=== PATIENT | female | born 1980 | race Caucasian/White ===

== ENCOUNTER → 2022-11-19 09:46 | Outpatient (CLI) | payer BC, SELFPAY ==
--- NOTE | ~2022-11-19 | US_ITS ---
EXAMINATION: US transvaginal DATE: 11/19/2022 10:07 INDICATION: Menorrhagia Comparison:No prior studies for comparison. TECHNIQUE: Multiple transabdominal and endovaginal sonographic images of the pelvis performed. FINDINGS: The uterus measures 10 x 5.4 x 6.1 cm. There are hypoechoic masses of the uterus, largest m easuring 3.9 cm, consistent with fibroids. The endometrial complex measures 7 mm. The right ovary measures 2.7 x 1.8 x 2.5 cm and the left ovary measures 2.7 x 2.2 x 2.6 cm. There ar e small follicles in each ovary. Normal doppler signal in both ovaries. There is no free fluid in the pelvis. There are no abnormal masses seen on either side. IMPRESSION: 1. Enlarged fibroid uterus, largest discrete fibroid measuring 3.9 cm. Reviewed, dictated and finalized at location [facility]
== END ==
PROVIDERS: PCP Nurse Practitioner; Visit Provider Nurse Practitioner
DX: N92.0 Excessive and frequent menstruation with regular cycle (principal); D25.9 Leiomyoma of uterus, unspecified
CPT/HCPCS: 76830

== ENCOUNTER 2022-12-28 00:15 | Day surgery (SDC) | payer BC, SELFPAY ==
[2022-12-01 15:42] VITALS: BMI 26.5
--- NOTE | 2022-12-01 15:47 | SUR.PREOP ---
Addendum entered by Arlene Lilly RN 12/17/22 13:57: PT TO ARRIVE AT 1300 ON 12/28/22 FOR SURGERY AT 1500. Original Note: Report to the Outpatient Waiting Room, entrance under the green pavilion located off [facility], at time 1215 on date 12/14/22. Planned Procedure Time: 1415. Time changes happen often and if your time is changed the preop area will call you the afternoon before. - You and your visitor will be asked to self-screen and do not enter if you have any COVID symptoms. - Only one visitor is requested with a max of two and NO children visitors are allowed at this time. - The patient visitor may be requested to leave or wait in car when not with patient due to distancing restrictions. - A mask is optional within the hospital at this time. Patients may have clear liquids (water, carbonated beverages, clear teas, apple juice) until 3 hours prior to surgery with a maximum of 20 ounces. - No food from midnight until time of surgery 20 OUNCES BEFORE 1115 - Infants may have breast milk until 4 hours before surgery, formula 6 hours prior to surgery. - Children will be allowed to drink immediately following surgery. If applicable, please bring a bottle or sippy cup to assist with drinking. Juice, water, soda, and popsicles are readily available. For infants on formula, please bring formula the day of surgery. Pacifiers are allowed. Take the following medications with a SIP of water the morning of surgery: ____N/A DO NOT STOP ANY OF YOUR OTHER PRESCRIPTION MEDICATIONS PRIOR TO SURGERY ?EXCEPT THE FOLLOWING Medications to discontinue per physician N/A Date to take last dose Please no make-up, nail bhutanese, hairspray, perfume, deodorant, or body powder the day of surgery. No jewelry (including any body piercings) or valuables the day of surgery, leave them at home. Please take a shower or bath the night before, or the morning of, surgery with an antibacterial soap. Wear comfortable, loose fitting clothing. Children are encouraged to wear pajamas. - Jewelry must be removed prior to entering the operating room. Rings and piercings that are not removed may be cut off. - The hospital will not accept responsibility for valuables. - Please leave all valuables, including medications, at home the day of surgery. If you are going home after surgery, a licensed route delivery service driver must drive you home. - NO public transportation without another adult if you receive anesthesia. - We recommend that an adult stay with you for 24 hours following discharge. - We also recommend that you do not drive, make important decision, drink alcoholic beverages, or take any drugs that were not prescribed by your health care provider for at least 24 hours after your discharge time. For Pediatric surgeries, we recommend two adults accompany the child home. Follow any additional instructions given to you from your surgeon. If you or anyone in your household have experienced Covid symptoms in the past week, please notify your surgeon or the nurse liaison at the phone number below for possible testing. Telephone instructions given to ___PATIENT____and asked if any additional questions and then verbalized understanding. Patient advised to call surgeon office or pre surgery nurse liaison [phone] if any additional questions.
--- NOTE | 2022-12-14 08:06 | WPDHPUPDATE1 ---
History and Physical Update Update Date/Time: 12/14/22 08:06 History and Physical has been reviewed, including an updated exam of the patient. There are NO changes in the patient's condition. Risks, benefits, and alternatives have been discussed and questions answered. Patient agrees to proceed with procedure.
--- NOTE | 2022-12-14 08:06 | PM.HPGS ---
History of Present Illness History of Present Illness Consent: Risks, benefits, and alternatives have been discussed and questions answered. Patient agrees to proceed with procedure. Chief complaint: Menorrhagia Narrative: Charlene Hubbard is a 42 year old female with worsening menstrual cycles and known fibroids. It was recommended to proceed with D&C hysteroscopy for further evaluation. Risks of infection, bleeding, perforation, and fluid imbalance were reviewed. Possible pathology was also discussed. Patient voiced understanding and agrees to proceed. Review of Systems Review of Systems: not repeated day of surgery; patient states no changes in status PMFSH Past Medical History Medical History (Updated 12/14/22 @ 08:09 by Maricruz Ro MD) Depression with anxiety (normal spontaneous vaginal delivery) x3 Surgical History Surgical History (Updated 12/14/22 @ 08:08 by Maricruz Ro MD) History of loop electrical excision procedure (LEEP) x2 possibly x3 patient is unsure in addition the patient had 2 prior cryotherapies Status post breast augmentation Social History Social History Years smoked: 1 Smoking status: Current every day smoker Tobacco type: e-cigarettes/vaping Alcohol intake: current Drinks per week: 5 Living arrangements: with family Meds Home Medications and Allergies Home Medications Medication Instructions Recorded Confirmed Type No Home Medications 12/01/22 12/01/22 History Allergies Allergy/AdvReac Type Severity Reaction Status Date / Time Sulfa (Sulfonamide Allergy Intermediate Hives Verified 12/01/22 15:55 Antibiotics) PENICILLIN Allergy Intermediate Hives / Uncoded 12/14/17 18:51 Red Face Exam Const: General: healthy appearing and alert Orientation/consciousness: patient oriented x3 Resp: Effort & Inspection: normal respiratory effort GI: GI Palp: Yes Soft to palpation, No Tenderness to palpation present (GI) and No Palpable mass present : External Female Exam: normal external appearance Speculum Exam - Vagina: normal appearance of the vagina and normal vaginal discharge Speculum Exam - Cervix: normal appearance of the cervix Bimanual exam- vagina & uterus: consistency normal and enlarged Bimanual Exam- Adnexa, other: normal adnexae and No adnexal tenderness Neuro: General: patient oriented x3 Assessment and Plan Assessment and plan (1) Menorrhagia: Code(s): N92.0 - Excessive and frequent menstruation with regular cycle Status: Acute Assessment and Plan: plan to proceed with D&C hysteroscopy
--- NOTE | 2022-12-14 14:39 | SUR.PREOP ---
1415- PT HAD ISSUES WITH PRIOR AUTHORIZATION FROM INSURANCE. PT SPOKE WITH CLEM ABOUT PROCEDURE BEING CANCELLED FOR TODAY. PT INFORMED TO CALLED DR. BARBA OFFICE TO RESCHEDULE.
--- NOTE | 2022-12-17 13:57 | PC.NURSE ---
Pt states no changes in medications or health history since initial interview. New pre-op instructions reviewed with pt. Pt denies further questions at this time.
--- NOTE | 2022-12-28 08:16 | WPDHPUPDATE1 ---
History and Physical Update Update Date/Time: 12/28/22 08:16 History and Physical has been reviewed, including an updated exam of the patient. There are NO changes in the patient's condition. Risks, benefits, and alternatives have been discussed and questions answered. Patient agrees to proceed with procedure.
--- NOTE | 2022-12-28 08:16 | PM.HPGS ---
History of Present Illness History of Present Illness Consent: Risks, benefits, and alternatives have been discussed and questions answered. Patient agrees to proceed with procedure. Chief complaint: Menorrhagia Narrative: Charlene Hubbard is a 42 year old female with menorrhagia and known fibroids. It was recommended to proceed with D&C hysteroscopy with possible myomectomy. Risks of infection, bleeding, perforation, and fluid imbalance are reviewed. Also due to patient's prior history of LEEP and cryotherapy she was given Cytotec 1 week prior to the procedure. Risks of inability to enter the cavity are also discussed. Patient voices understanding and agrees to proceed. Review of Systems Review of Systems: not repeated day of surgery; patient states no changes in status PMFSH Past Medical History Medical History (Updated 12/14/22 @ 08:09 by Maricruz Ro MD) Depression with anxiety (normal spontaneous vaginal delivery) x3 Surgical History Surgical History (Updated 12/14/22 @ 08:08 by Maricruz Ro MD) History of loop electrical excision procedure (LEEP) x2 possibly x3 patient is unsure in addition the patient had 2 prior cryotherapies Status post breast augmentation Social History Social History Years smoked: 1 Smoking status: Current every day smoker Tobacco type: e-cigarettes/vaping Alcohol intake: current Drinks per week: 5 Living arrangements: with family Meds Home Medications and Allergies Home Medications Medication Instructions Recorded Confirmed Type No Home Medications 12/01/22 12/17/22 History Allergies Allergy/AdvReac Type Severity Reaction Status Date / Time Penicillins Allergy Intermediate HIVES/RED Verified 12/17/22 13:56 FACE Sulfa (Sulfonamide Allergy Intermediate Hives Verified 12/17/22 13:56 Antibiotics) Exam Const: General: healthy appearing and alert Orientation/consciousness: patient oriented x3 Resp: Effort & Inspection: normal respiratory effort GI: GI Palp: Yes Soft to palpation, No Tenderness to palpation present (GI) and No Palpable mass present : External Female Exam: normal external appearance Speculum Exam - Vagina: normal appearance of the vagina and normal vaginal discharge Speculum Exam - Cervix: normal appearance of the cervix Bimanual exam- vagina & uterus: uterine size normal and consistency normal Bimanual Exam- Adnexa, other: normal adnexae and No adnexal tenderness Neuro: General: patient oriented x3 Assessment and Plan Assessment and plan (1) Menorrhagia: Code(s): N92.0 - Excessive and frequent menstruation with regular cycle Status: Acute Assessment and Plan: plan to proceed with D&C hysteroscopy
[2022-12-28 09:23] VITALS: BP 115/72; PULSE 81; RESP 20; TEMP 36.3; O2SAT 100
[2022-12-28] MEDS: ACETAMINOPHEN 500 MG TABLET 1000 MG PO (09:24)
--- NOTE | 2022-12-28 09:48 | P.PNAN_ITS ---
Anes - Initial Pre Proc Eval Procedure: Operation Date: 12/28/22 11:30 Proposed Procedures p Hysteroscopy Dilation and Curettage - Maricruz Ro MD Date/Time: 12/28/22 09:48 Surgeon: Maricruz Ro MD Pre Op Diagnosis: Menorrhagia Patient Data Age: 42 Gender: F Height: 1.6 m Weight: 68.04 kg Allergies Allergy/AdvReac Type Severity Reaction Status Date / Time Penicillins Allergy Intermediate HIVES/RED Verified 12/28/22 09:24 FACE Sulfa (Sulfonamide Allergy Intermediate Hives Verified 12/28/22 09:24 Antibiotics) Home Medications Medication Instructions Recorded Confirmed Type No Home Medications 12/01/22 12/28/22 History Patient hx anesthesia problems: none Family hx anesthesia problems: none Results Review: All pre-operative results and documents have been reviewed as part of the pre- operative evaluation. PMFSH Past Medical History Medical History (Updated 12/14/22 @ 08:09 by Maricruz Ro MD) Depression with anxiety (normal spontaneous vaginal delivery) x3 Surgical History Surgical History (Updated 12/14/22 @ 08:08 by Maricruz Ro MD) History of loop electrical excision procedure (LEEP) x2 possibly x3 patient is unsure in addition the patient had 2 prior cryotherapies Status post breast augmentation Social History Social History Years smoked: 1 Smoking status: Current every day smoker Tobacco type: e-cigarettes/vaping Alcohol intake: current Drinks per week: 5 Living arrangements: with family Anes - Eval Final PreProcedure Day of Procedure 12/28/22 09:48 Patient weight: normal Heart: regular rate and rhythm Lungs: clear to auscultation Airway: Mallampati scale class II Neurological: alert and oriented Last oral intake: >/= 8 hours ASA classification: II Emergent: no Anesthetic plan: proceed Anesthesia type and monitoring: general GIVS and standard monitoring Results Review: All pre-operative results and documents have been reviewed as part of the pre- operative evaluation. Informed Consent: The patient's anesthetic plan and its attendant risks and benefits were discussed with the patient/family/POA. Questions were solicited and answers provided to the satisfaction of the patient/family/POA.
[2022-12-28] MEDS: LACTATED RINGERS 1,000 ML 30 ML IV CONT (09:55)
[2022-12-28] MEDS: LIDOCAINE HCL 1% LOCAL INJ 20 ML VIAL 10 ML INFILTRATE (11:11)
[2022-12-28 11:24] VITALS: BP 103/56; PULSE 80; RESP 16; O2SAT 98
--- NOTE | 2022-12-28 11:24 | W.PM.PROC2 ---
Procedure Note - Detailed Date of Procedure 12/28/22 Pre-op Diagnosis Menorrhagia Post-op Diagnosis Same Procedure Performed D&C hysteroscopy Surgeon Maricruz Ro MD Anesthesia MAC and Local Findings uterus sounds to 9cm; the posterior endometrial wall is very thick extending into the endocervix Description of Procedure The patient is taken to the operating room and placed under anesthesia in the dorsal lithotomy position. She was prepped and draped in usual sterile fashion. [place] speculum was placed in the vagina and the cervix grasped on the anterior lip with a tenaculum. Cervix is injected in each quadrant with lidocaine. Uterus is sounded to 9cm. The hysteroscope is placed with the above-stated findings. The small Aveeta resection blade was used to resect the very thickened wall including that in the endocervix. The hysteroscope was then removed and the sharp curette used to curette the endometrium until a good uterine cry is noted in all areas. All instruments are removed. The sponge, needle, and instrument counts are correct per the OR staff. The patient is awakened from anesthesia and taken to recovery in stable condition. Estimated Blood Loss 5 Drains No Packing No Pathology Yes ( Endometrial shavings and curettings) Complications No immediate complications Condition Stable Disposition PACU
[2022-12-28 11:50] VITALS: BP 115/75; PULSE 67; RESP 20
[2022-12-28] MEDS: oxyCODONE HCL (*CRX) 5 MG TAB IR PO (11:52)
[2022-12-28 12:20] VITALS: BP 112/80; PULSE 63; RESP 20
== END 2022-12-28 12:33 | disposition home or self-care (01) ==
PROVIDERS: PCP Nurse Practitioner; Visit Provider Obstetrics & Gynecology Gynecology
PROC: 0U5B8ZZ Destruction of Endometrium, Via Natural or Artificial Opening Endoscopic (ICD-10-PCS; CPT 58563; principal; 2022-12-28 11:30)
DX: N92.0 Excessive and frequent menstruation with regular cycle (principal); F17.290 Nicotine dependence, other tobacco product, uncomplicated
CPT/HCPCS: 58558; 88305; A9270; J1885; J2250; J2704; J3010; J7120

== ENCOUNTER 2022-12-29 15:27 | Emergency (ER) | payer BC, SELFPAY ==
[2022-12-29 15:34] VITALS: BP 147/78; PULSE 120; RESP 16; TEMP 39.3; O2SAT 99
--- NOTE | 2022-12-29 15:36 | ED.URI ---
HPI - URI/Sore Throat General Chief Complaint: Upper Respiratory Infection Stated Complaint: body aches/weiner/sore throat Time Seen by Provider: 12/29/22 15:36 Source: patient, RN notes reviewed and old records reviewed Mode of arrival: ambulatory Limitations: no limitations History of Present Illness HPI Narrative: 42-year-old female presents to the [facility] with complaints of body aches, headache and sore throat that started approximately 11:00 a.m. today Had a D&C done yesterday, outpatient. Tried calling [employer] board certified orthotist. elicited complaint: fever and sore throat Related Data Allergies Allergy/AdvReac Type Severity Reaction Status Date / Time Penicillins Allergy Intermediate HIVES/RED Verified 12/29/22 15:37 FACE Sulfa (Sulfonamide Allergy Intermediate Hives Verified 12/29/22 15:37 Antibiotics) Review of Systems Review of Systems: All systems reviewed & are unremarkable except as noted in HPI and below Constitutional: Constitutional: Reports as per HPI and Reports body ache(s) Eyes: Eyes: Reports no additional eye complaints ENT: Reports as per HPI and Reports sore throat Cardiovascular: Cardiovascular: Reports no additional cardiovascular complaints, Denies chest pain and Denies dyspnea Respiratory: Respiratory: Reports no additional respiratory complaints, Denies chest congestion, Denies cough and Denies dyspnea Gastrointestinal: Gastrointestinal: Reports no additional gastrointestinal complaints, Denies abdominal pain, Denies nausea and Denies vomiting Musculoskeletal: Musculoskeletal: Reports no additional musculoskeletal complaints Integumentary/Breasts: Skin/Breast: Reports system reviewed and no additional complaints, except as docu Neurologic: Reports system reviewed and no additional complaints, except as documented Psychiatric: Psychiatric: Reports no additional psychiatric complaints Allergic/Immunologic: Allergic/Immunologic: Reports no additional allergic/immunologic complaints PMFSH Past Medical History Medical History Depression with anxiety (normal spontaneous vaginal delivery) x3 Surgical History Surgical History History of loop electrical excision procedure (LEEP) x2 possibly x3 patient is unsure in addition the patient had 2 prior cryotherapies Status post breast augmentation Social History Social History Years smoked: 1 Smoking status: Current every day smoker Tobacco type: e-cigarettes/vaping Alcohol intake: current Drinks per week: 5 Living arrangements: with family Comments At the time of my signature, I reviewed and agree with the nursing past medical, surgical, social, and family history. There is no relevant family history pertinent to the patient complaint. Exam Const: General: cooperative, healthy appearing, comfortable, no acute distress, well developed, alert and well nourished Nutritional Appearance: well nourished Orientation/consciousness: patient oriented x3 Limitations: no limitations HENMT: Head: normal to inspection Ears: hearing grossly normal bilaterally and external ears normal Face/Nose/Sinus: Normal external nose present, Normal nares present, Normal nasal mucous membranes and turbinates present and normal facial exam Face and sinus: normal facial exam Mouth: Yes Normal oral and palatal mucosa present, Yes lip normal and Yes moist mucous membranes Throat: posterior oropharynx normal, uvula midline and abnormal tonsil bilateral hypertrophy 2+; no erythema and no exudates Eyes: General: appearance normal, both eyes and all related structures Alignment and Position: alignment normal Periorbital: periorbital findings normal Conjunctivae: conjunctivae normal Pupils: Equal, round and reactive pupils present EOM: EOMs intact bilaterally Neck: Neck: normal visual inspection,
[2022-12-29 15:37] VITALS: BP 147/78; PULSE 120; RESP 16; TEMP 39.3; O2SAT 99
[2022-12-29 15:47] VITALS: TEMP 39.3
[2022-12-29] MEDS: ACETAMINOPHEN 500 MG TABLET 1000 MG PO (15:47)
[2022-12-29 16:10] VITALS: PULSE 110; TEMP 39.1
== END 2022-12-29 16:10 | disposition home or self-care (01) ==
PROVIDERS: Emergency Provider Nurse Practitioner; PCP Nurse Practitioner Family
DX: J02.0 Streptococcal pharyngitis (principal); F17.290 Nicotine dependence, other tobacco product, uncomplicated
CPT/HCPCS: 87880; 99213; A9270; G0463

== ENCOUNTER 2023-01-25 00:52 | Day surgery (SDC) | payer BC, SELFPAY ==
[2023-01-18 11:30] VITALS: BMI 26.2
--- NOTE | 2023-01-18 11:33 | PC.NURSE ---
Report to the Outpatient Waiting Room, entrance under the green pavilion located off [facility], at time 1215 on date 01/25/23. Planned Procedure Time: 1415. Time changes happen often and if your time is changed the preop area will call you the afternoon before. - You and your visitor will be asked to self-screen and do not enter if you have any COVID symptoms. - A mask is optional within the hospital at this time. Patients may have clear liquids (water, carbonated beverages, clear teas, apple juice) until 3 hours prior to surgery with a maximum of 20 ounces. - No food from midnight until time of surgery Take the following medications with a SIP of water the morning of surgery: N/A DO NOT STOP ANY OF YOUR OTHER PRESCRIPTION MEDICATIONS PRIOR TO SURGERY EXCEPT THE FOLLOWING Medications to discontinue per physician: N/A Date to take last dose: N/A Please no make-up, nail serbian, hairspray, perfume, deodorant, or body powder the day of surgery. No jewelry (including any body piercings) or valuables the day of surgery, leave them at home. Please take a shower or bath the night before, or the morning of, surgery with an antibacterial soap. Wear comfortable, loose fitting clothing. - Jewelry must be removed prior to entering the operating room. Rings and piercings that are not removed may be cut off. - The hospital will not accept responsibility for valuables. - Please leave all valuables, including medications, at home the day of surgery. If you are going home after surgery, a licensed semi truck driver must drive you home. - NO public transportation without another adult if you receive anesthesia. - We recommend that an adult stay with you for 24 hours following discharge. - We also recommend that you do not drive, make important decision, drink alcoholic beverages, or take any drugs that were not prescribed by your health care provider for at least 24 hours after your discharge time. Follow any additional instructions given to you from your surgeon. If you or anyone in your household have experienced Covid symptoms in the past week, please notify your surgeon or the nurse liaison at the phone number below for possible testing. Telephone instructions given to PT - DAVE SOMMERS and asked if any additional questions and then verbalized understanding. Patient advised to call surgeon office or pre surgery nurse liaison [phone] if any additional questions.
--- NOTE | 2023-01-25 08:38 | P.HP_ITS ---
History of Present Illness History of Present Illness Consent: Risks, benefits, and alternatives have been discussed and questions answered. Patient agrees to proceed with procedure. Chief complaint: Menorrhagia Narrative: Charlene Hubbard is a 42 year old female with menorrhagia. Patient underwent D&C hysteroscopy December of 2022 with benign findings. Patient has elected to proceed with Elaine endometrial ablation for treatment. Risks of infection, bleeding, perforation, and failure were reviewed. Patient voices understanding and agrees to proceed. PMFSH Past Medical History Medical History (Updated 12/30/22 @ 00:01 by Ramona Romero) Depression with anxiety (normal spontaneous vaginal delivery) x3 Surgical History Surgical History (Updated 01/25/23 @ 08:40 by Maricruz Ro MD) History of hysteroscopy 01/17 benign History of loop electrical excision procedure (LEEP) x2 possibly x3 patient is unsure in addition the patient had 2 prior cryotherapies Status post breast augmentation Social History Social History Years smoked: 1 Smoking status: Current every day smoker Tobacco type: e-cigarettes/vaping Alcohol intake: current Drinks per week: 5 Substance use: never Substance use type: does not use Living arrangements: with family Spiritual care concerns: No Meds Home Medications and Allergies Home Medications Medication Instructions Recorded Confirmed Type No Home Medications 01/18/23 01/18/23 History Allergies Allergy/AdvReac Type Severity Reaction Status Date / Time Penicillins Allergy Intermediate HIVES/RED Verified 01/18/23 11:30 FACE Sulfa (Sulfonamide Allergy Intermediate Hives Verified 01/18/23 11:30 Antibiotics) Exam Const: General: healthy appearing and alert Orientation/consciousness: patient oriented x3 Resp: Effort & Inspection: normal respiratory effort GI: GI Palp: Yes Soft to palpation, No Tenderness to palpation present (GI) and No Palpable mass present : External Female Exam: normal external appearance Speculum Exam - Vagina: normal appearance of the vagina and normal vaginal discharge Speculum Exam - Cervix: normal appearance of the cervix Bimanual exam- vagina & uterus: uterine size normal and consistency normal Bimanual Exam- Adnexa, other: normal adnexae and No adnexal tenderness Neuro: General: patient oriented x3 Assessment and Plan Assessment and plan (1) Menorrhagia: Code(s): N92.0 - Excessive and frequent menstruation with regular cycle Status: Acute Assessment and Plan: plan to proceed Elaine endometrial ablation
--- NOTE | 2023-01-25 08:38 | WPDHPUPDATE1 ---
History and Physical Update Update Date/Time: 01/25/23 08:38 History and Physical has been reviewed, including an updated exam of the patient. There are NO changes in the patient's condition. Risks, benefits, and alternatives have been discussed and questions answered. Patient agrees to proceed with procedure.
[2023-01-25 12:12] VITALS: BP 123/87; PULSE 77; RESP 16; TEMP 36.6; O2SAT 100
--- NOTE | 2023-01-25 13:23 | P.PNAN_ITS ---
Anes - Eval Pre Procedure Procedure: Operation Date: 01/25/23 14:15 Proposed Procedures p Hysteroscopy with Elaine Endometrial Ablation - Maricruz Ro MD Date/Time: 01/25/23 13:23 Pre Op Diagnosis: Menorrhagia Patient Data Age: 42 Gender: F Height: 1.6 m Weight: 69.3 kg Last Vital Signs Temp 36.6 C 01/25/23 12:12 Pulse 77 01/25/23 12:12 Resp 16 01/25/23 12:12 BP 123/87 01/25/23 12:12 Pulse Ox 100 01/25/23 12:12 O2 Del Method Room Air 01/25/23 12:12 Allergies Allergy/AdvReac Type Severity Reaction Status Date / Time Penicillins Allergy Intermediate HIVES/RED Verified 01/25/23 12:22 FACE Sulfa (Sulfonamide Allergy Intermediate Hives Verified 01/25/23 12:22 Antibiotics) Home Medications Medication Instructions Recorded Confirmed Type No Home Medications 01/18/23 01/25/23 History Patient hx anesthesia problems: none Family hx anesthesia problems: none Results Review: All pre-operative results and documents have been reviewed as part of the pre- operative evaluation. PMFSH Past Medical History Medical History (Updated 12/30/22 @ 00:01 by Ramona Romero) Depression with anxiety (normal spontaneous vaginal delivery) x3 Surgical History Surgical History (Updated 01/25/23 @ 08:40 by Maricruz Ro MD) History of hysteroscopy 01/17 benign History of loop electrical excision procedure (LEEP) x2 possibly x3 patient is unsure in addition the patient had 2 prior cryotherapies Status post breast augmentation Social History Social History Years smoked: 1 Smoking status: Current every day smoker Tobacco type: e-cigarettes/vaping Alcohol intake: current Drinks per week: 5 Substance use: never Substance use type: does not use Living arrangements: with family Spiritual care concerns: No Exam Day of Procedure 01/25/23 13:23
[2023-01-25] MEDS: KETOROLAC 30 MG/ML VIAL (*BKC) IV PUSH (13:26)
[2023-01-25] MEDS: LIDOCAINE HCL 1% LOCAL INJ 20 ML VIAL 10 ML INFILTRATE (13:33)
[2023-01-25 13:53] VITALS: BP 94/58; PULSE 79; RESP 20
[2023-01-25] MEDS: LACTATED RINGERS 1,000 ML 30 ML IV CONT (13:53)
--- NOTE | 2023-01-25 13:55 | W.PM.PROC2 ---
Procedure Note - Detailed Date of Procedure 01/25/23 Pre-op Diagnosis Menorrhagia Post-op Diagnosis Same Procedure Performed Elaine endometrial ablation Surgeon Maricruz Ro MD Anesthesia MAC and Local Findings uterus sounds to 7cm and appears to be shedding Description of Procedure The patient is taken to the operating room and placed under anesthesia in the dorsal lithotomy position. She was prepped and draped in the usual sterile fashion. Avella speculum was placed in the vagina and the cervix grasped on the anterior lip with a tenaculum. Cervix is injected in each quadrant with 1% lidocaine. The uterus sounds to 7cm. The hysteroscope was placed with the above-stated finding. The hysteroscope is removed.The cervix is is serially dilated to an 8 Hegar . The Elaine device is opened and placed set at 4 length. Cavity assessment passed on the 1st attempt and treatment cycle lasted the full 2minutes. The Elaine device was removed and the hysteroscope is replaced with a good ablation effect noted. The hysteroscope was removed as are the rest of the instruments. Sponge, needle, and instrument counts are correct per the OR staff. The patient is awakened from anesthesia and taken to recovery in stable condition. Estimated Blood Loss 5 Drains No Packing No Pathology None sent Complications No immediate complications Condition Stable Disposition PACU
[2023-01-25] MEDS: oxyCODONE HCL (*CRX) 5 MG TAB IR PO (14:17)
[2023-01-25 14:20] VITALS: BP 118/77; PULSE 90; RESP 20
[2023-01-25 14:50] VITALS: BP 120/82; PULSE 63; RESP 20
[2023-01-25] MEDS: fentaNYL CITRATE INJ (*CRX) 100 MCG/2 ML VIAL 25 MCG IV PUSH (14:56)
[2023-01-25 15:00] VITALS: BP 119/78; PULSE 71; RESP 20
== END 2023-01-25 15:05 | disposition home or self-care (01) ==
PROVIDERS: PCP Nurse Practitioner Family; Visit Provider Obstetrics & Gynecology Gynecology
PROC: 0U5B8ZZ Destruction of Endometrium, Via Natural or Artificial Opening Endoscopic (ICD-10-PCS; CPT 58563; principal; 2023-01-25 14:15)
DX: N92.0 Excessive and frequent menstruation with regular cycle (principal); F17.290 Nicotine dependence, other tobacco product, uncomplicated
CPT/HCPCS: 58563; A9270; J1100; J1885; J2250; J2405; J2704; J3010; J7120

== ENCOUNTER 2023-02-17 19:11 | Emergency (ER) | payer BC, SELFPAY ==
[2023-02-17 19:20] VITALS: BP 128/75; PULSE 110; RESP 16; TEMP 37.6; O2SAT 99
--- NOTE | 2023-02-17 19:41 | ED.SKABFB ---
HPI - Skin/Abscess/Foreign Bdy General Chief complaint: Extremity Injury, Upper Stated complaint: Right Hand Pain Time Seen by Provider: 02/17/23 19:41 Source: patient and RN notes reviewed Mode of arrival: ambulatory Limitations: no limitations History of Present Illness HPI narrative: 42-year-old female presents with concern for redness, swelling around the fingernail of the 3rd digit of the right hand. Reports started Wednesday. Reports she took 2 doses of leftover clindamycin today. She denies any drainage. She reports she got her nails done over the weekend. MD complaint: other (Redness) Related Data Allergies Allergy/AdvReac Type Severity Reaction Status Date / Time Penicillins Allergy Intermediate HIVES/RED Verified 02/17/23 19:26 FACE Sulfa (Sulfonamide Allergy Intermediate Hives Verified 02/17/23 19:26 Antibiotics) Review of Systems Review of Systems: CONSTITUTIONAL: Denies malaise, chills, sweats, or fever. EYES: Denies redness, or discharge. ENT: Denies rhinorrhea, congestion, swollen lips, swollen tongue CARDIOVASCULAR: Denies chest pain, palpitations, or edema. RESPIRATORY: Denies cough or dyspnea. GASTROINTESTINAL: Denies abdominal pain, nausea, vomiting SKIN: Reports redness, swelling around the nail bed of the 3rd digit of the right hand without drainage MUSCULOSKELETAL: Denies joint pain or myalgia. NEUROLOGIC: Denies headache. All systems reviewed & are unremarkable except as noted in HPI and below PMFSH Past Medical History Medical History (Updated 02/17/23 @ 19:46 by Mariana Mcpherson NP) Depression with anxiety (normal spontaneous vaginal delivery) x3 Surgical History Surgical History (Updated 01/25/23 @ 08:40 by Maricruz Ro MD) History of hysteroscopy 01/17 benign History of loop electrical excision procedure (LEEP) x2 possibly x3 patient is unsure in addition the patient had 2 prior cryotherapies Status post breast augmentation Social History Social History Years smoked: 1 Smoking status: Current every day smoker Tobacco type: e-cigarettes/vaping Alcohol intake: current Drinks per week: 5 Substance use: never Substance use type: does not use Living arrangements: with family Spiritual care concerns: No Comments At time of signature, agree with nursing past medical, surgical, social and family history. There is no relevant family history pertinent to the presenting complaint Exam Narrative: GENERAL: Well-appearing, well-nourished, and in no acute distress. HEAD: Normocephalic, atraumatic. EYES: PERRLA, conjunctivae clear, and EOMI. ENT: Mucous membranes moist. Oropharynx without edema, erythema or lesions. NECK: Supple. No lymphadenopathy CHEST: Clear to auscultation. No respiratory distress. HEART: Regular rate and rhythm. SKIN: Warm, dry. Erythema, edema surrounding the lateral nail bed of the 3rd digit of the right hand without fluctuation or purulent drainage noted NEURO: Alert and oriented x3. PSYCH: Normal mood and affect Course Course Emergency Course: Patient is aware of diagnosis, understands and agrees to treatment plan. Anticipatory guidance given. Patient agrees to follow-up as directed and is aware of reasons to seek care at the emergency department. Portions of this record may have been created with voice recognition software Level of Care: Express Care Visit Vital Signs Vital signs: Vital Signs Temperature 99.6 F 02/17/23 19:20 Pulse Rate 110 H 02/17/23 19:20 Respiratory Rate 16 02/17/23 19:20 Blood Pressure 128/75 02/17/23 19:20 Pulse Oximetry 99 02/17/23 19:20 Oxygen Delivery Room Air 02/17/23 19:20 Temperature 99.6 F 02/17/23 19:20 Pulse Rate 110 H 02/17/23 19:20 Respiratory Rate 16 02/17/23 19:20 Blood Pressure 128/75 02/17/23 19:20 Pulse Oximetry 99 02/17/23 19:20 Oxygen Delivery Room Air 02/17/23 1
== END 2023-02-17 19:59 | disposition home or self-care (01) ==
PROVIDERS: Emergency Provider Nurse Practitioner; PCP Nurse Practitioner Family
DX: L03.011 Cellulitis of right finger (principal); F17.290 Nicotine dependence, other tobacco product, uncomplicated
CPT/HCPCS: 99213; G0463

== ENCOUNTER 2025-02-20 13:58 | Outpatient (CLI) | payer BC, SELFPAY ==
--- NOTE | ~2025-02-20 | XR_ITS ---
AP view of the pelvis and AP and lateral views of the bilateral hips Clinical history: Pain Findings: No acute fracture or dislocation is seen. Osseous alignment is anatomic. Bilateral hip and SI joint spaces are preserved. Soft tissues are unremarkable. Impression: No significant abnormality is seen. Reviewed, dictated and finalized at [facility]. Impression: No significant abnormality is seen.
== END 2025-02-20 13:59 | disposition home or self-care (01) ==
LOC: MICIMG 13:59
PROVIDERS: PCP Emergency Medicine; Visit Provider Emergency Medicine
DX: M25.552 Pain in left hip (principal); M54.16 Radiculopathy, lumbar region; M54.50 Low back pain, unspecified
CPT/HCPCS: 73521

== ENCOUNTER 2025-02-23 14:34 | Outpatient (CLI) | payer BC, SELFPAY ==
--- NOTE | ~2025-02-23 | MR_ITS ---
MRI of the lumbar spine Clinical History: Back pain Technique: Axial T2-weighted images, and sagittal T1-weighted, T2-weighted, and T2 fat-sat images wer e acquired. Findings: There is no fracture or sublocation of the lumbar spine. Vertebral bodies maintain normal h eight and line. No bone marrow signal abnormality seen. At L1-L2, there is mild disc desiccation without significant disc bulge or herniation. No spinal genesis l stenosis or neural foraminal narrowing. L2-L3, L3-L4, L4-L5, L5-S1, the intervertebral discs maintain normal signal and position. No disc bul ge or herniation at these levels. There are mild scattered facet joint degenerative changes. No spina l canal stenosis or neural foraminal narrowing at these levels. Paravertebral soft tissues are unremarkable. Impression: Minimal degenerative change, as above. Reviewed, dictated and finalized at [facility]. Impression: Minimal degenerative change, as above.
== END 2025-02-23 14:35 | disposition home or self-care (01) ==
LOC: GOSHIMG 14:34
PROVIDERS: PCP Emergency Medicine; Visit Provider Emergency Medicine
DX: M47.896 Other spondylosis, lumbar region (principal); M25.552 Pain in left hip
CPT/HCPCS: 72148